=== PATIENT | female | born 1960 | race Caucasian/White ===

== ENCOUNTER 2019-08-22 20:29 | Inpatient (IN) | payer BC, OTHER ==
--- NOTE | 2019-08-22 21:07 | HP ---
Admitting History and Physical - Admission Chief Complaint: 07/31/19 acute abdominal pain, diarrhea, nausea and vomiting lasting one week. 08/06/19 paresthesias of tips of all fingers without motor or sensory drift. 08/08/19 right arm sensory drift, negative right Achilles, 2 + Achilles on left. 08/12/19 LP at [facility] with protein 29. 08/14/19 lost both Achilles, abnormal prioprioception, balance, and extreme fatigue. 08/20/19 paresthesias of both feet. 08/22/19 fell. 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 Labs 08/08/19 positive for Campylobacter, crp 22, platelets 75k, sed rate 33. 08/20/19 vit d 50, platelets 145k, HbA1c 8, sed rate 9. History Source: Patient Limitations to Obtaining History: No Limitations - Past Medical History MFTS: Yes: Other (abnormal prioprioception, feels like in a fog.) Cardiovascular: No: AFIB, Aneurysm, Aortic Insufficiency, Aortic Stenosis, CAD, CHF, Deep Vein Thrombosis, HTN, Hyperlipdemia, MD, Mitral Insufficiency, Mitral Stenosis, Murmur, Pulmonary Hypertension, Other Pulmonary: No: Asthma, Bronchitis, Cancer, COPD, O2 Dependent, Pneumonia, Previously Intubated, Pulmonary Embolus, Pulmonary Fibrosis, Sleep Apnea, Other Gastrointestinal: Yes: Other (Lap band) Hepatobiliary: No: Cirrhosis, Cholelithiasis, Cholecystitis, Choledocholithiasis , Hepatitis A, Hepatitis B, Hepatitis C, Other Renal/: No: Renal Failure, Renal Inusuff, BPH, Cancer, Hematuria, Hemodialysis , Neurogenic Bladder, Renal Calculi, UTI, Other Reproductive: Yes: Other (s/p total hysterectomy with bilateral oophorectomy) Heme/Onc: No: Anemia, B12 Deficiency, Bleeding Disorder, Cancer, Current Chemotherapy, Current Radiation Therapy, Hemochromatosis, Hypercoaguable State, Myeloproliferative Synd, Sickle Cell Disease, Sickle Cell Trait, Thrombocytopenia, Other Infectious Disease: Yes: Other (Campylobacter) Psych: No: Addictions, Anxiety, Bipolar, Depression, Panic, Psychosis, Schizophrenia, Other Musculoskeletal: Yes: Other (generalized muscle weakness) Rheumatology: No: Fibromyalgia, Gout, Lupus, Rheumatoid Arthritis, Sarcoidosis, Vasculitis, Other ENT: No: Allergic Rhinitis, Sinusitis, Other Endocrine: Yes: Diabetes Mellitus Dermatology: No: Basal Cell, Cellulitis, Eczema, Melanoma, Psoriasis, Squamous Cell, Other - Past Surgical History Past Surgical History: Yes: Hysterectomy, Laminectomy, Oopherectomy - Smoking History Smoking history: Never smoked - Alcohol/Substance Use Hx Alcohol Use: Yes (occasional) History of Substance Use: reports: None - Social History Usual Living Arrangement: Yes: With Significant Other History of Recent Travel: No Review of Systems - Review of Systems Constitutional: reports: Weakness Eyes: reports: No Symptoms HENT: reports: No Symptoms Neck: reports: No Symptoms Cardiovascular: reports: No Symptoms Respiratory: reports: No Symptoms Gastrointestinal: reports: Abdominal Pain, Diarrhea, Nausea, Vomiting Genitourinary: reports: No Symptoms Breasts: reports: No Symptoms Reported Musculoskeletal: reports: Muscle Weakness Integumentary: reports: No Symptoms Neurological: reports: Dizziness, Parasthesia, Unsteady Gait, Weakness Endocrine: reports: No Symptoms Hematology/Lymphatic: reports: No Symptoms Psychiatric: reports: No Symptoms Physical Examination Constitutional: Yes: Well Nourished, No Distress, Calm Eyes: Yes: Conjunctiva Clear, EOM Intact HENT: Yes: Atraumatic, Normocephalic Neck: Yes: Supple, Trachea Midline Cardiovascular: Yes: Regular Rate and Rhythm Respiratory: Yes: Regular, CTA Bilaterally Gastrointestinal: Yes: Normal Bowel Sounds, Soft ...Rectal Exam: Yes: Deferred Renal/: Yes: WNL Breast(s): Yes: WNL Musculoskeletal: Yes: Muscle Weakness Extremities: Yes: WNL Edema: No Peripheral Pulses WNL: Yes Peripheral Pulses: Left Radial: 2+, Right Radial: 2+, Left Doralis Pedis: 2+, Right Dorsalis Pedis: 2+, Left Femoral: 2+, Right Femoral: 2+ Integumentary: Yes: WNL Neurological: Yes: Alert, Oriented, Loss of Sensation, Paresthesia, Tingling, Unsteady Gait, Weakness ...Motor Strength: LUE (generalized muscle weakness) Psychiatric: Yes: Alert, Oriented Problem List - Problems (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 - GUILLAIN-BARRE SYNDROME (2) Endometrial ca Code(s): C54.1 - MALIGNANT NEOPLASM OF ENDOMETRIUM (3) Post laminectomy syndrome Code(s): M96.1 - POSTLAMINECTOMY SYNDROME, NOT ELSEWHERE CLASSIFIED (4) Paresthesia Code(s): R20.2 - PARESTHESIA OF SKIN (5) Impaired proprioception Code(s): R29.818 - OTHER SYMPTOMS AND SIGNS INVOLVING THE NERVOUS SYSTEM (6) Impaired functional mobility, balance, gait, and endurance Code(s): Z74.09 - OTHER REDUCED MOBILITY (7) Fatigue Code(s): R53.83 - OTHER FATIGUE (8) Fall from one level to another Code(s): W17.89XA - OTHER FALL FROM ONE LEVEL TO ANOTHER, INITIAL ENCOUNTER Assessment/Plan Assessment/plan: acute Guillain-Copiague syndrome; IV to keep vein open, IGG infusion, consultation to Dr. Gary Whitman.
[2019-08-22 21:52] LABS: BASO % 0.6 % (0-2.0); EOS % 1.5 % (0-4.5); HEMATOCRIT 41.9 % (32.4-45.2); HEMOGLOBIN 13.6 GM/dL (10.7-15.3); LYMPH % 27.1 % (8-40); MCH 27.5 pg (25.7-33.7); MCHC 32.5 g/dl (32.0-36.0); MEAN CELL VOLUME 84.5 fl (80-96); MEAN PLT VOLUME 7.8 fl (7.5-11.1); MONO % 6.3 % (3.8-10.2); NEUT % 64.5 % (42.8-82.8); PLATELET COUNT 169 K/MM3 (134-434); RBC 4.95 M/mm3 (3.60-5.2); RDW 14.2 % (11.6-15.6); WHITE BLOOD COUNT 7.7 K/mm3 (4.0-10.0)
[2019-08-22 22:04] LABS: INR 0.94 (0.83-1.09); PROTHROMBIN TIME (PATIENT) 11.1 SEC (9.7-13.0)
[2019-08-22 22:15] LABS: ALBUMIN 3.7 g/dl (3.4-5.0); BILIRUBIN,TOTAL 0.3 mg/dL (0.2-1); BLOOD UREA NITROGEN 22.9 mg/dL (7-18); CALCIUM 9.9 mg/dL (8.5-10.1); CREATININE 0.8 mg/dL (0.55-1.3); POTASSIUM 3.8 mmol/L (3.5-5.1); TOT PROT 6.7 g/dl (6.4-8.2)
--- NOTE | 2019-08-22 22:38 | CON.NEURO ---
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 with katerine Herman diarhea, the developed numbness of her hands comning week;progressed to numbness of her feet of recent; loss of dexterity in the last 72 hours. noted to have reduced reflexes over last week. LP done at [facility] one week ago CSF protein WNL. Also complains of dizziness/imbalance /SOB with exertion. Labs 08/08/19 positive for Campylobacter, crp 22, platelets 75k, sed rate 33. vit d 50, platelets 145k, HbA1c 8, sed rate 9 07/31/19 acute abdominal pain, diarrhea, nausea and vomiting lasting one week. 08/06/19 paresthesias of tips of all fingers without motor or sensory drift. right arm sensory drift, negative right Achilles, 2+ Achilles on left. 08/12/19 LP at [facility] with protein 29. Admitted for suspicion of AIDP/IVIG. 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: Other (abnormal prioprioception, feels like in a fog.) Cardio/Vascular: No: AFIB, Aneurysm, Aortic Insufficiency, Aortic Stenosis, CAD , CHF, Deep Vein Thrombosis, HTN, Hyperlipdemia, CT, Mitral Insufficiency, Mitral Stenosis, Murmur, Pulmonary Hypertension, Other Pulmonary: No: Asthma, Bronchitis, Cancer, COPD, O2 Dependent, Pneumonia, Previously Intubated, Pulmonary Embolus, Pulmonary Fibrosis, Sleep Apnea, Other Gastrointestinal: Yes: Other (Lap band) Hepatobiliary: No: Cirrhosis, Cholelithiasis, Cholecystitis, Choledocholithiasis , Hepatitis A, Hepatitis B, Hepatitis C, Other Renal/: No: Renal Failure, Renal Inusuff, BPH, Cancer, Hematuria, Hemodialysis , Neurogenic Bladder, Renal Calculi, UTI, Other ...LMP Comment: 2011 ...: No Infectious Disease: Yes: Other (Campylobacter) Psych: No: Addictions, Anxiety, Bipolar, Depression, Panic, Psychosis, Schizophrenia, Other Musculoskeletal: Yes: Other (generalized muscle weakness) Rheumatology: No: Fibromyalgia, Gout, Lupus, Rheumatoid Arthritis, Sarcoidosis, Vasculitis, Other ENT: No: Allergic Rhinitis, Sinusitis, Other Endocrine: Yes: Diabetes Mellitus Dermatology: No: Basal Cell, Cellulitis, Eczema, Melanoma, Psoriasis, Squamous Cell, Other - Past Surgical History Past Surgical History: Yes: Hysterectomy, Laminectomy, Oopherectomy - Alcohol/Substance Use Hx Alcohol Use: Yes (occasional) History of Substance Use: reports: None - Smoking History Smoking history: Never smoked - Social History History of Recent Travel: No Physical Exam-Neuro Vital Signs: Vital Signs Temperature 97.9 F 08/22/19 20:29 Pulse Rate 82 08/22/19 20:29 Respiratory Rate 18 08/22/19 22:10 Blood Pressure 134/76 08/22/19 20:29 O2 Sat by Pulse Oximetry (%) 96 08/22/19 22:10 Labs: CBC, BMP 08/22/19 21:35 08/22/19 21:35 INR, PTT INR 0.94 (0.83-1.09) 08/22/19 21:35 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 day with katerine Herman diarhea, the developed numbness of her hands comning week;progressed to numbness of her feet of recent; loss of dexterity in the last 72 hours. noted to have reduced reflexes over last week. LP done at [facility] one week ago CSF protein WNL. Also complains of dizziness/imbalance /SOB with exertion. Labs 08/08/19 positive for Campylobacter, crp 22, platelets 75k, sed rate 33. vit d 50, platelets 145k, HbA1c 8, sed rate 9 07/31/19 acute abdominal pain, diarrhea, nausea and vomiting lasting one week. 08/06/19 paresthesias of tips of all fingers without motor or sensory drift. right arm sensory drift, negative right Achilles, 2+ Achilles on left. 08/12/19 LP at [facility] with protein 29. AP : Suspicion for AIDP clinically/ acute progressive sensorimotor neuropathy plan for 5 days IVIG 2gm /kg total dose over 5 days. IGA level WNL. autonomic monitoring /neuro check and vital q6/ EKG-spoke to ICU/will move to unit. DVT prophalaxis. FU LYME CHest XRAY. DR LOWE
[2019-08-22] MEDS ORDERED: IMMUNE GLOBULIN (IgG) 20 GM VIAL (PRIVIGEN) IVPB SCH (23:00)
--- NOTE | 2019-08-22 23:13 | CONSULT ---
Consultation: REQUESTING PROVIDER: Dr. Whitman CONSULT REQUEST: We have been asked to medically evaluate this patient for Guillain-[place] on IVIG. HISTORY OF PRESENT ILLNESS: 59F presents in the ED for complaints of lower extremity weakness and GI symptoms for 2 weeks. On 07/31/19, pt's symptoms started with nausea, vomiting, diarrhea with decreased PO intake. She also noticed having left hand paresthesias/numbness which later progressed to her b/l feet. She completed 1 week of Ciprofloxacin with almost complete resolution of her GI symptoms now currently able to tolerate PO. Additionally, pt states over the past 3 days, she started experiencing problems walking due to imbalance. Denies cough, fever , chest pain. She was seen by Dr. Kovacs as an outpatient for evaluation of her symptoms and found to have reduced Achillies reflexes bilaterally. Labs done on 08/08/19 were positive for Campylobacter. Of note, she recently had an LP done at [facility] on 08/12/19 which showed normal protein. Pt was seen by neuro upon admission with suspicion for Guillain-[place] syndrome with plan to treat with IVIG. Neuro: Dr. Kovacs (seen by Dr. Whitman who is resolution analyst) REVIEW OF SYSTEMS: CONSTITUTIONAL: weight loss Absent: fever, chills, diaphoresis, generalized weakness, malaise, loss of appetite, weight change HEENT: Absent: rhinorrhea, nasal congestion, throat pain, throat swelling, difficulty swallowing, mouth swelling, ear pain, eye pain, visual changes CARDIOVASCULAR: Absent: chest pain, syncope, palpitations, irregular heart rate, lightheadedness , peripheral edema RESPIRATORY: Absent: cough, shortness of breath, dyspnea with exertion, orthopnea, wheezing, stridor, hemoptysis GASTROINTESTINAL: Absent: abdominal pain, abdominal distension, nausea, vomiting, diarrhea, constipation, melena, hematochezia GENITOURINARY: Absent: dysuria, frequency, urgency, hesitancy, hematuria, flank pain, genital pain MUSCULOSKELETAL: Absent: myalgia, arthralgia, joint swelling, back pain, neck pain SKIN: Absent: rash, itching, pallor HEMATOLOGIC/IMMUNOLOGIC: Absent: easy bleeding, easy bruising, lymphadenopathy, frequent infections ENDOCRINE: Absent: unexplained weight gain, unexplained weight loss, heat intolerance, cold intolerance NEUROLOGIC: b/l upper and lower paresthesias, unsteady gait, b/l lower extremity weakness Absent: headache, focal weakness or paresthesias, dizziness, unsteady gait, seizure, mental status changes, bladder or bowel incontinence PSYCHIATRIC: Absent: anxiety, depression, suicidal or homicidal ideation, hallucinations. PHYSICAL EXAMINATION Vital Signs - 24 hr 08/22/19 08/22/19 20:29 22:10 Temperature 97.9 F Pulse Rate 82 Respiratory 18 18 Rate Blood Pressure 134/76 O2 Sat by Pulse 96 96 Oximetry (%) GENERAL: AAOx3. NAD. Pleasant-well appearing female. HEENT: AT/NC. EOMI. MMM. NECK: Normal range of motion, supple without lymphadenopathy, JVD, or masses. LUNGS: CTA B/L. No wheezes, rhonchi, rales noted. HEART: RRR. Normal S1, S2. No murmurs noted. ABDOMEN: Soft, NT/ND. Normoactive bowel sounds in all 4Qs. MUSCULOSKELETAL: Normal range of motion at all joints. No bony deformities or tenderness. No CVA tenderness. EXTREMITIES: Chronic b/l erythema LE. 2+ dorsalis pedis pulses. NEUROLOGICAL: Cranial nerves II-XII intact. Normal speech. Normal gait. 2+ dorsalis pedis pulses b/l. 2+ radial pulses b/l. SKIN: Warm, dry, normal turgor, no rashes or lesions noted. Laboratory Results - last 24 hr 08/22/19 08/22/19 08/22/19 21:35 21:35 21:35 WBC 7.7 RBC 4.95 Hgb 13.6 Hct 41.9 MCV 84.5 MCH 27.5 MCHC 32.5 RDW 14.2 Plt Count 169 MPV 7.8 Absolute Neuts (auto) 5.0 Neutrophils % 64.5 Lymphocytes % 27.1 Monocytes % 6.3 Eosinophils % 1.5 Basophils % 0.6 Nucleated RBC % 0 PT with INR 11.10 INR 0.94 Sodium 139 Potassium 3.8 Chloride 105 Carbon Dioxide 26 Anion Gap 8 BUN 22.9 H Creatinine 0.8 Est GFR (CKD-EPI)AfAm 92.22 Est GFR (CKD-EPI)NonAf 79.57 Random Glucose 116 H Calcium 9.9 Total Bilirubin 0.3 AST 20 ALT 43 Alkaline Phosphatase 56 Total Protein 6.7 Albumin 3.7 Active Medications Generic Name Dose Route Start Last Admin Trade Name Freq PRN Reason Stop Dose Admin Immune Globulin 40 gm 08/22/19 23:00 Privigen 10% Vial IVPB 08/26/19 22:01 DAILY@2200 [facility] ASSESSMENT/PLAN: 59F presents in the ED for complaints of lower extremity weakness and GI symptoms for 2 weeks found to have 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 Neuro Acute Guillain-[place] Syndrome -AAOx3, stable gait -Neuro consulted (Dr. Whitman) -IVIG ordered Cardiovascular -hemodynamically stable -cont ICU tele monitoring Pulm -No acute issues -Satting well on room air GI -Currently asymptomatic, tolerating PO -Regular diet ID -Completed 1 week of Ciprofloxacin as an outpatient Prophylaxis DVT: SCDs FEN -no IVf -recheck lytes in AM -Regular diet Dispo: We will continue to follow the patient. Thank you for this consultative opportunity. Visit type - Emergency Visit Emergency Visit: Yes ED Registration Date: 08/22/19 Care time: The patient presented to the Emergency Department on the above date and was hospitalized for further evaluation of their emergent condition. - New Patient This patient is new to me today: Yes Date on this admission: 08/23/19 - Critical Care Critical Care patient: Yes Total Critical Care Time (in minutes): 45 Critical Care Statement: The care of this patient involved high complexity decision making to prevent further life threatening deterioration of the patient 's condition and/or to evaluate & treat vital organ system(s) failure or risk of failure. ATTENDING PHYSICIAN STATEMENT I saw and evaluated the patient. I reviewed the resident's note and discussed the case with the resident. I agree with the resident's findings and plan as documented. SUBJECTIVE: OBJECTIVE: ASSESSMENT AND PLAN:
[2019-08-23 08:17] LABS: BASO % 0.5 % (0-2.0); EOS % 1.2 % (0-4.5); HEMATOCRIT 39.1 % (32.4-45.2); HEMOGLOBIN 12.9 GM/dL (10.7-15.3); MCH 27.7 pg (25.7-33.7); MEAN CELL VOLUME 83.8 fl (80-96); MEAN PLT VOLUME 7.6 fl (7.5-11.1); MONO % 6.7 % (3.8-10.2); NEUT % 71.6 % (42.8-82.8); PLATELET COUNT 140 K/MM3 (134-434); RBC 4.66 M/mm3 (3.60-5.2); RDW 14.4 % (11.6-15.6); WHITE BLOOD COUNT 4.1 K/mm3 (4.0-10.0)
[2019-08-23 08:39] LABS: ALBUMIN 3.3 g/dl (3.4-5.0); BILIRUBIN,TOTAL 0.5 mg/dL (0.2-1); BLOOD UREA NITROGEN 17.5 mg/dL (7-18); CALCIUM 9.2 mg/dL (8.5-10.1); CREATININE 0.7 mg/dL (0.55-1.3); TOT PROT 7.1 g/dl (6.4-8.2)
--- NOTE | 2019-08-23 09:16 | PN ---
Progress Note, Physician Chief Complaint: Acute upper and lower paresthesias, abnormal proprioception, unsteady gait, and generalized muscle weakness. Denies to shortness of breath. 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 - Current Medication List Current Medications: Active Medications Chlorhexidine Gluconate (Hibiclens For Decolonization -) 1 applic TP HS [facility] Immune Globulin (Privigen 10% Vial) 40 gm IVPB DAILY@2200 [facility] Stop: 08/25/19 22:01 Mupirocin (Bactroban Ointment (For Decolonization) -) 1 applic NS BID [facility] Stop: 08/28/19 09:59 - Objective Vital Signs: Vital Signs Temperature 97.9 F 08/23/19 00:29 Pulse Rate 78 08/23/19 08:45 Respiratory Rate 18 08/23/19 08:45 Blood Pressure 123/84 08/23/19 08:45 O2 Sat by Pulse Oximetry (%) 99 08/23/19 08:35 Constitutional: Yes: Well Nourished, No Distress, Calm Eyes: Yes: Conjunctiva Clear, EOM Intact HENT: Yes: Atraumatic, Normocephalic Neck: Yes: Supple, Trachea Midline Cardiovascular: Yes: Regular Rate and Rhythm Respiratory: Yes: Regular, CTA Bilaterally Gastrointestinal: Yes: Normal Bowel Sounds, Soft ...Rectal Exam: Yes: Deferred Genitourinary: Yes: WNL Breast(s): Yes: WNL Musculoskeletal: Yes: Muscle Weakness Extremities: Yes: Other (generalized muscle weakness) Edema: No Peripheral Pulses WNL: Yes Peripheral Pulses: Left Radial: 2+, Right Radial: 2+, Left Doralis Pedis: 2+, Right Dorsalis Pedis: 2+, Left Femoral: 2+, Right Femoral: 2+ Integumentary: Yes: WNL Neurological: Yes: Alert, Oriented, Paresthesia, Unsteady Gait, Weakness ...Motor Strength: LUE (generalized muscle weakness) Psychiatric: Yes: WNL Labs: CBC, BMP 08/23/19 07:37 08/23/19 07:37 INR, PTT INR 0.94 (0.83-1.09) 08/22/19 21:35 - ....Imaging Other: Report Reviewed (Lab data reviewed) Problem List - Problems (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 - GUILLAIN-BARRE SYNDROME (2) Endometrial ca Code(s): C54.1 - MALIGNANT NEOPLASM OF ENDOMETRIUM (3) Post laminectomy syndrome Code(s): M96.1 - POSTLAMINECTOMY SYNDROME, NOT ELSEWHERE CLASSIFIED (4) Paresthesia Code(s): R20.2 - PARESTHESIA OF SKIN (5) Impaired proprioception Code(s): R29.818 - OTHER SYMPTOMS AND SIGNS INVOLVING THE NERVOUS SYSTEM (6) Impaired functional mobility, balance, gait, and endurance Code(s): Z74.09 - OTHER REDUCED MOBILITY (7) Fatigue Code(s): R53.83 - OTHER FATIGUE (8) Fall from one level to another Code(s): W17.89XA - OTHER FALL FROM ONE LEVEL TO ANOTHER, INITIAL ENCOUNTER (9) Physical deconditioning Code(s): R53.81 - OTHER MALAISE (10) Muscular deconditioning Code(s): R29.898 - OTH SYMPTOMS AND SIGNS INVOLVING THE MUSCULOSKELETAL SYSTEM (11) Type 2 diabetes mellitus Code(s): E11.9 - TYPE 2 DIABETES MELLITUS WITHOUT COMPLICATIONS Assessment/Plan Assessment/plan: 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
[2019-08-23] MEDS ORDERED: IMMUNE GLOBULIN (IgG) 10 GM VIAL IVPB SCH (10:00)
[2019-08-23] MEDS ORDERED: PT OWN MED DRAWER 7, Y5N ONE (10:03)
--- NOTE | 2019-08-23 10:55 | CONSULT ---
Consult - text type - Consultation Consultation Note: [facility] Pt seen and examined in ICU CC: paresthesia, direct admit for IVIG infusion HPI: obtained from medical record and pt herself. 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 Pt relates day with acute GI illnes, mostly NB diarrhea, and then subsequently ~72hrs later the developed numbness of her hands ;progressed to numbness of her feet and loss of dexterity also noted to have reduced reflexes over last week. She had LP done at [facility], [place] ~ one week ago with CSF protein WNL. Also complains of dizziness/imbalance /SOB with exertion. There was still concern for GBS and she was offered IVIG at that time. here symptoms had appeared to be improving so she declined at that time but they soon returned prompting visit with neurology here. IVIG again recommended and pt was directly admitted for the IVIG. Given concern for acute autonomic dysfunction and risk for cardiac abnomalities she was admitted to the ICU for the inital infusion. She tolerated dose last night and is well appearing this am. Labs 08/08/19 positive for Campylobacter, crp 22, platelets 75k, sed rate 33. vit d 50, platelets 145k, HbA1c 8, sed rate 9 07/31/19 acute abdominal pain, diarrhea, nausea and vomiting lasting one week. 08/06/19 paresthesias of tips of all fingers without motor or sensory drift. right arm sensory drift, negative right Achilles, 2+ Achilles on left. 08/12/[address] [facility] with protein 29. Past Medical History [employer] Other (abnormal prioprioception, feels like in a fog.) Cardio/Vascular Pulmonary Gastrointestinal Other (Lap band) Hepatobiliary Renal/ Reproductive Other (s/p total hysterectomy with bilateral oophorectomy) Heme/Onc Infectious Disease Other (Campylobacter) Psych Rheumatology ENT Endocrine Diabetes Mellitus Dermatology Past Surgical History Past Surgical History Hysterectomy,Laminectomy,Oopherectomy Smoking History Smoking history Never smoked Alcohol/Substance Use Hx Alcohol Use Yes: occasional History of Substance Use None Social History History of Recent Travel No Active Medications Chlorhexidine Gluconate (Hibiclens For Decolonization -) 1 applic TP HS [facility] Immune Globulin (Privigen 10% Vial) 40 gm IVPB DAILY@2200 [facility] Stop: 08/25/19 22:01 Mupirocin (Bactroban Ointment (For Decolonization) -) 1 applic NS BID [facility] Stop: 08/28/19 09:59 CBCD WBC 4.1 K/mm3 (4.0-10.0) 08/23/19 07:37 RBC 4.66 M/mm3 (3.60-5.2) 08/23/19 07:37 Hgb 12.9 GM/dL (10.7-15.3) 08/23/19 07:37 Hct 39.1 % (32.4-45.2) 08/23/19 07:37 MCV 83.8 fl (80-96) 08/23/19 07:37 MCHC 33.0 g/dl (32.0-36.0) 08/23/19 07:37 RDW 14.4 % (11.6-15.6) 08/23/19 07:37 Plt Count 140 K/MM3 (134-434) 08/23/19 07:37 MPV 7.6 fl (7.5-11.1) 08/23/19 07:37 CMP Sodium 138 mmol/L (136-145) 08/23/19 07:37 Potassium 4.0 mmol/L (3.5-5.1) 08/23/19 07:37 Chloride 106 mmol/L (98-107) 08/23/19 07:37 Carbon Dioxide 25 mmol/L (21-32) 08/23/19 07:37 Anion Gap 7 MMOL/L (8-16) L 08/23/19 07:37 BUN 17.5 mg/dL (7-18) 08/23/19 07:37 Creatinine 0.7 mg/dL (0.55-1.3) 08/23/19 07:37 Random Glucose 150 mg/dL (74-106) H 08/23/19 07:37 Calcium 9.2 mg/dL (8.5-10.1) 08/23/19 07:37 Total Bilirubin 0.5 mg/dL (0.2-1) 08/23/19 07:37 AST 19 U/L (15-37) 08/23/19 07:37 ALT 38 U/L (13-61) 08/23/19 07:37 Alkaline Phosphatase 53 U/L (45-117) 08/23/19 07:37 Total Protein 7.1 g/dl (6.4-8.2) 08/23/19 07:37 Albumin 3.3 g/dl (3.4-5.0) L 08/23/19 07:37 Constitutional: Yes: Well Nourished, No Distress, Calm Eyes: Yes: Conjunctiva Clear, EOM Intact HENT: Yes: Atraumatic, Normocephalic Neck: Yes: Supple, Trachea Midline Cardiovascular: Yes: Regular Rate and Rhythm Respiratory: Yes: Regular, CTA Bilaterally Gastrointestinal: Yes: Normal Bowel Sounds, Soft ...Rectal Exam: Yes: Deferred Genitourinary: Yes: WNL Breast(s): Yes: WNL Musculoskeletal: Yes: Muscle Weakness Extremities: Yes: Other (generalized muscle weakness) Edema: No Peripheral Pulses WNL: Yes Peripheral Pulses: Left Radial: 2+, Right Radial: 2+, Left Doralis Pedis: 2+, Right Dorsalis Pedis: 2+, Left Femoral: 2+, Right Femoral: 2+ Integumentary: Yes: WNL Neurological: Yes: Alert, Oriented, Paresthesia, Unsteady Gait, Weakness ...Motor Strength: LUE (generalized muscle weakness) Psychiatric: Yes: WNL ASSESSMENT/PLAN: 59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 Whitman) -IVIG ordered - neuro checks CV -hemodynamically stable -cont ICU tele monitoring GI -Currently asymptomatic, tolerating PO -Regular diet ID -Completed 1 week of Ciprofloxacin as an outpatient -no current sick prodrome Prophylaxis DVT: SCDs FEN -Regular diet [id number]
[2019-08-23] MEDS: MUPIROCIN 2% TOPICAL OINTMENT FOR DECOLONIZATION NS SCH ×2 (12:05→21:47)
--- NOTE | 2019-08-23 14:27 | PN ---
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 with katerine Herman diarhea, the developed numbness of her hands comning week;progressed to numbness of her feet of recent; loss of dexterity in the last 72 hours. noted to have reduced reflexes over last week. LP done at [facility] one week ago CSF protein WNL. Also complains of dizziness/imbalance /SOB with exertion. Labs 08/08/19 positive for Campylobacter, crp 22, platelets 75k, sed rate 33. vit d 50, platelets 145k, HbA1c 8, sed rate 9 07/31/19 acute abdominal pain, diarrhea, nausea and vomiting lasting one week. 08/06/19 paresthesias of tips of all fingers without motor or sensory drift. right arm sensory drift, negative right Achilles, 2+ Achilles on left. 08/12/19 LP at [facility] with protein 29. Admitted for suspicion of AIDP/IVIG. 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, feels like in a fog.) Cardio/Vascular: No: AFIB, Aneurysm, Aortic Insufficiency, Aortic Stenosis, CAD , CHF, Deep Vein Thrombosis, HTN, Hyperlipdemia, [place], Mitral Insufficiency, Mitral Stenosis, Murmur, Pulmonary Hypertension, Other Pulmonary: No: Asthma, Bronchitis, Cancer, COPD, O2 Dependent, Pneumonia, Previously Intubated, Pulmonary Embolus, Pulmonary Fibrosis, Sleep Apnea, Other Gastrointestinal: Yes: Other (Lap band) Hepatobiliary: No: Cirrhosis, Cholelithiasis, Cholecystitis, Choledocholithiasis , Hepatitis A, Hepatitis B, Hepatitis C, Other Renal/: No: Renal Failure, Renal Inusuff, BPH, Cancer, Hematuria, Hemodialysis , Neurogenic Bladder, Renal Calculi, UTI, Other ...LMP Comment: 2011 ...: No Infectious Disease: Yes: Other (Campylobacter) Psych: No: Addictions, Anxiety, Bipolar, Depression, Panic, Psychosis, Schizophrenia, Other Musculoskeletal: Yes: Other (generalized muscle weakness) Rheumatology: No: Fibromyalgia, Gout, Lupus, Rheumatoid Arthritis, Sarcoidosis, Vasculitis, Other ENT: No: Allergic Rhinitis, Sinusitis, Other Endocrine: Yes: Diabetes Mellitus Dermatology: No: Basal Cell, Cellulitis, Eczema, Melanoma, Psoriasis, Squamous Cell, Other - Past Surgical History Past Surgical History: Yes: Hysterectomy, Laminectomy, Oopherectomy - Alcohol/Substance Use Hx Alcohol Use: Yes (occasional) History of Substance Use: reports: None - Smoking History Smoking history: Never smoked - Social History History of Recent Travel: No Physical Exam-Neuro Vital Signs: Vital Signs Temperature 97.9 F 08/23/19 00:29 Pulse Rate 78 08/23/19 08:45 Respiratory Rate 18 08/23/19 08:45 Blood Pressure 123/84 08/23/19 08:45 O2 Sat by Pulse Oximetry (%) 99 08/23/19 08:35 Labs: CBCD WBC 4.1 K/mm3 (4.0-10.0) 08/23/19 07:37 RBC 4.66 M/mm3 (3.60-5.2) 08/23/19 07:37 Hgb 12.9 GM/dL (10.7-15.3) 08/23/19 07:37 Hct 39.1 % (32.4-45.2) 08/23/19 07:37 MCV 83.8 fl (80-96) 08/23/19 07:37 MCHC 33.0 g/dl (32.0-36.0) 08/23/19 07:37 RDW 14.4 % (11.6-15.6) 08/23/19 07:37 Plt Count 140 K/MM3 (134-434) 08/23/19 07:37 MPV 7.6 fl (7.5-11.1) 08/23/19 07:37 CMP Sodium 138 mmol/L (136-145) 08/23/19 07:37 Potassium 4.0 mmol/L (3.5-5.1) 08/23/19 07:37 Chloride 106 mmol/L (98-107) 08/23/19 07:37 Carbon Dioxide 25 mmol/L (21-32) 08/23/19 07:37 Anion Gap 7 MMOL/L (8-16) L 08/23/19 07:37 BUN 17.5 mg/dL (7-18) 08/23/19 07:37 Creatinine 0.7 mg/dL (0.55-1.3) 08/23/19 07:37 Calcium 9.2 mg/dL (8.5-10.1) 08/23/19 07:37 Total Bilirubin 0.5 mg/dL (0.2-1) 08/23/19 07:37 AST 19 U/L (15-37) 08/23/19 07:37 ALT 38 U/L (13-61) 08/23/19 07:37 Alkaline Phosphatase 53 U/L (45-117) 08/23/19 07:37 Total Protein 7.1 g/dl (6.4-8.2) 08/23/19 07:37 Albumin 3.3 g/dl (3.4-5.0) L 08/23/19 07:37 Assessment/Plan 59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 Jose day with katerine Herman diarhea, the developed numbness of her hands comning week;progressed to numbness of her feet of recent; loss of dexterity in the last 72 hours. noted to have reduced reflexes over last week. LP done at [facility] one week ago CSF protein WNL. Also complains of dizziness/imbalance /SOB with exertion. Labs 08/08/19 positive for Campylobacter, crp 22, platelets 75k, sed rate 33. 1 /04/01 vit d 50, platelets 145k, HbA1c 8, sed rate 9 07/31/19 acute abdominal pain, diarrhea, nausea and vomiting lasting one week. 08/06/19 paresthesias of tips of all fingers without motor or sensory drift. right arm sensory drift, negative right Achilles, 2+ Achilles on left. 08/12/19 LP at [facility] with protein 29. AP : Suspicion for AIDP clinically/ acute progressive sensorimotor neuropathy IVIG day 1/5 IGA level WNL. autonomic monitoring /neuro check and vital q6/ DVT prophalaxis. FU LYME PT consult DR LOWE
[2019-08-23] MEDS: IMMUNE GLOBULIN (IgG) 20 GM VIAL (PRIVIGEN) IVPB SCH (18:23)
[2019-08-23] MEDS: CHLORHEXIDINE GLUCONATE 4% CLEANSER FOR DECOLONIZATION TP SCH (21:47)
[2019-08-24] MEDS: ACETAMINOPHEN 325 MG TABLET (FP) PO PRN ×3 (02:14→20:39)
[2019-08-24 06:34] LABS: HEMATOCRIT 39.7 % (32.4-45.2); HEMOGLOBIN 13.1 GM/dL (10.7-15.3); MCH 27.7 pg (25.7-33.7); MEAN PLT VOLUME 7.8 fl (7.5-11.1); PLATELET COUNT 173 K/MM3 (134-434); RBC 4.73 M/mm3 (3.60-5.2); RDW 14.5 % (11.6-15.6); WHITE BLOOD COUNT 4.7 K/mm3 (4.0-10.0)
[2019-08-24 06:50] LABS: BLOOD UREA NITROGEN 14.5 mg/dL (7-18); CREATININE 0.6 mg/dL (0.55-1.3); POTASSIUM 4.3 mmol/L (3.5-5.1)
--- NOTE | 2019-08-24 09:33 | PN ---
Progress Note (short form) - Note Progress Note: PULM/CCM Progress Notes: Pt seen and examined in the ICU. States that numbness in BLE is slightly improved. C/o headache o/n. No neck stiffness. Relieved with Tylenol. OOB to chair and ambulating. Active Medications Acetaminophen (Tylenol -) 650 mg PO Q4H PRN PRN Reason: MILD PAIN Last Admin: 08/24/19 02:14 Dose: 650 mg Chlorhexidine Gluconate (Hibiclens For Decolonization -) 1 applic TP HS [facility] Last Admin: 08/23/19 21:47 Dose: 1 applic Immune Globulin (Privigen 10% Vial) 40 gm IVPB DAILY@1800 [facility] Stop: 08/26/19 18:01 Last Admin: 08/23/19 18:23 Dose: 40 gm Mupirocin (Bactroban Ointment (For Decolonization) -) 1 applic NS BID [facility] Stop: 08/28/19 09:59 Last Admin: 08/23/19 21:47 Dose: Not Given Vital Signs Period Temp Pulse Resp BP Sys/Griffin Pulse Ox Last 24 Hr 97.4 F-98.2 F 73-85 07-04 99-127/62-91 99 Intake & Output 08/21/19 08/22/19 08/23/19 08/24/19 23:59 23:59 23:59 23:59 Intake Total 800 400 Balance 800 400 Weight 107.048 kg 107 kg Neuro: A+O x3, MEAD, neck supple HEENT: PERRL; MMM Lungs: CTA CV: RRR Abd: Soft, ND, NT EXT: WWP CBC, BMP 08/24/19 05:10 08/24/19 05:10 ASSESSMENT/PLAN: 59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 Whitman) -IVIG d3/5 -Regular neuro checks CV -hemodynamically stable -cont ICU tele monitoring GI -Currently asymptomatic, tolerating PO -Regular diet ID -Completed 1 week of Ciprofloxacin as an outpatient -no current sick prodrome Prophylaxis DVT: SCDs FEN -Regular diet Irma Hinojosa, ARIEL
[2019-08-24] MEDS: MUPIROCIN 2% TOPICAL OINTMENT FOR DECOLONIZATION NS SCH ×2 (10:15→22:02)
--- NOTE | 2019-08-24 11:41 | PN ---
Progress Note, Physician Chief Complaint: Patient seen and examined at the bedside in ICU. Acute paresthesias of tips of fingers and feet, unsteady gait, generalized weakness, headache, and fatigue. Denies to shortness of breath. 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 admitted directly to [facility] with acute Guiilain-[place]amar syndrome (AIDP ) for treatment with immune globulin and close observation for - Current Medication List Current Medications: Active Medications Acetaminophen (Tylenol -) 650 mg PO Q4H PRN PRN Reason: MILD PAIN Last Admin: 08/24/19 02:14 Dose: 650 mg Chlorhexidine Gluconate (Hibiclens For Decolonization -) 1 applic TP HS [facility] Last Admin: 08/23/19 21:47 Dose: 1 applic Immune Globulin (Privigen 10% Vial) 40 gm IVPB DAILY@1800 [facility] Stop: 08/26/19 18:01 Last Admin: 08/23/19 18:23 Dose: 40 gm Mupirocin (Bactroban Ointment (For Decolonization) -) 1 applic NS BID [facility] Stop: 08/28/19 09:59 Last Admin: 08/24/19 10:15 Dose: Not Given - Objective Vital Signs: Vital Signs Temperature 97.8 F 08/24/19 02:00 Pulse Rate 84 08/24/19 10:16 Respiratory Rate 20 08/24/19 10:16 Blood Pressure 122/83 08/24/19 10:16 O2 Sat by Pulse Oximetry (%) 99 08/24/19 09:00 Constitutional: Yes: Well Nourished, No Distress, Calm, Mild Distress Eyes: Yes: Conjunctiva Clear, EOM Intact HENT: Yes: Atraumatic, Normocephalic Neck: Yes: Supple, Trachea Midline Cardiovascular: Yes: Regular Rate and Rhythm Respiratory: Yes: Regular, CTA Bilaterally Gastrointestinal: Yes: Normal Bowel Sounds, Soft ...Rectal Exam: Yes: Deferred Genitourinary: Yes: WNL Breast(s): Yes: WNL Musculoskeletal: Yes: Muscle Weakness Extremities: Yes: WNL Edema: Yes Edema: LLE: Trace, RLE: Trace Peripheral Pulses WNL: Yes Peripheral Pulses: Left Radial: 2+, Right Radial: 2+, Left Doralis Pedis: 2+, Right Dorsalis Pedis: 2+, Left Femoral: 2+, Right Femoral: 2+ Integumentary: Yes: WNL Neurological: Yes: Paresthesia, Unsteady Gait, Weakness ...Motor Strength: LUE (generalized muscle weakness) Psychiatric: Yes: WNL Labs: CBC, BMP 08/24/19 05:10 08/24/19 05:10 INR, PTT INR 0.94 (0.83-1.09) 08/22/19 21:35 - ....Imaging Other: Report Reviewed (Lab data reviewed) Problem List - Problems (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 - GUILLAIN-BARRE SYNDROME (2) Endometrial ca Code(s): C54.1 - MALIGNANT NEOPLASM OF ENDOMETRIUM (3) Post laminectomy syndrome Code(s): M96.1 - POSTLAMINECTOMY SYNDROME, NOT ELSEWHERE CLASSIFIED (4) Paresthesia Code(s): R20.2 - PARESTHESIA OF SKIN (5) Impaired proprioception Code(s): R29.818 - OTHER SYMPTOMS AND SIGNS INVOLVING THE NERVOUS SYSTEM (6) Impaired functional mobility, balance, gait, and endurance Code(s): Z74.09 - OTHER REDUCED MOBILITY (7) Fatigue Code(s): R53.83 - OTHER FATIGUE (8) Fall from one level to another Code(s): W17.89XA - OTHER FALL FROM ONE LEVEL TO ANOTHER, INITIAL ENCOUNTER (9) Physical deconditioning Code(s): R53.81 - OTHER MALAISE (10) Muscular deconditioning Code(s): R29.898 - OTH SYMPTOMS AND SIGNS INVOLVING THE MUSCULOSKELETAL SYSTEM (11) Type 2 diabetes mellitus Code(s): E11.9 - TYPE 2 DIABETES MELLITUS WITHOUT COMPLICATIONS (12) Headache Code(s): R51 - HEADACHE Assessment/Plan Assessment/plan: 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
[2019-08-24] MEDS ORDERED: ACETAMINOPHEN 325 MG TABLET (FP) PO PRN (11:44)
[2019-08-24 14:41] VITALS: BMI 43.0
[2019-08-24] MEDS ORDERED: diphenhydrAMINE HCL 25 MG CAPSULE (FP) PO PRN (16:44)
[2019-08-24] MEDS ORDERED: PT OWN MED DRAWER 7, Y5N ONE (17:17)
[2019-08-24] MEDS: IMMUNE GLOBULIN (IgG) 20 GM VIAL (PRIVIGEN) IVPB SCH (18:25)
[2019-08-24] MEDS: CHLORHEXIDINE GLUCONATE 4% CLEANSER FOR DECOLONIZATION TP SCH (22:02)
[2019-08-25] MEDS: ACETAMINOPHEN 325 MG TABLET (FP) PO PRN ×2 (07:29→21:44)
--- NOTE | 2019-08-25 10:35 | PN ---
Teaching Attending Note Name of Resident: Ирина Alexander ATTENDING PHYSICIAN STATEMENT I saw and evaluated the patient. I reviewed the resident's note and discussed the case with the resident. I agree with the resident's findings and plan as documented. SUBJECTIVE: Patient seen and examined in the ICU. HARRIS overnight that is improved today. No CP or SOB. No acute events overnight. Intake & Output 08/22/19 08/23/19 08/24/19 08/25/19 23:59 23:59 23:59 23:59 Intake Total 800 800 Balance 800 800 Weight 236 lb 235 lb 14.314 oz 235 lb Last Vital Signs Temp Pulse Resp BP Pulse Ox 97.6 F 72 20 109/64 99 08/24/19 21:00 08/25/19 08:06 08/25/19 08:06 08/25/19 08:06 08/24/19 19:22 Active Medications Acetaminophen (Tylenol -) 650 mg PO Q4H PRN PRN Reason: MILD PAIN Last Admin: 08/25/19 07:29 Dose: 650 mg Chlorhexidine Gluconate (Hibiclens For Decolonization -) 1 applic TP HS [facility] Last Admin: 08/24/19 22:02 Dose: 1 applic Diphenhydramine HCl (Benadryl -) 25 mg PO Q6H PRN PRN Reason: FOR ITCHING Last Admin: 08/24/19 17:23 Dose: 25 mg Immune Globulin (Privigen 10% Vial) 40 gm IVPB DAILY@1800 [facility] Stop: 08/26/19 18:01 Last Admin: 08/24/19 18:25 Dose: 40 gm Mupirocin (Bactroban Ointment (For Decolonization) -) 1 applic NS BID [facility] Stop: 08/28/19 09:59 Last Admin: 08/24/19 22:02 Dose: Not Given Neuro: A+O x3, MEAD, neck supple HEENT: PERRL; MMM Lungs: CTA CV: RRR Abd: Soft, ND, NT EXT: WWP ASSESSMENT/PLAN: GBS/ADIP IVIG Infusion day #4/5 O2 as needed OOB to chair VTE prophylaxis PO as tolerated Floor Dr Oh
[2019-08-25] MEDS: MUPIROCIN 2% TOPICAL OINTMENT FOR DECOLONIZATION NS SCH ×2 (10:37→21:43)
--- NOTE | 2019-08-25 12:16 | PN ---
Progress Note, Physician Chief Complaint: Patient seen and examined at the bedside, unsteady gait much improved, paresthesias of fingers and feet subsided, Achilles deep tendon reflexes absent. 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 07/31/19 abdominal pain, diarrhea, nausea and vomiting; 08/06/19 paresthesias of tips of fingers with negative motor or sensory drift; 08/08/19 right arm sensory drift, negative Achilles on right, 2+ Achilles on left; 08/14/19 lost both Achilles, proprioception, balance, fatigue; 08/20/19 paresthesias both feet; 08/22/19 fell. 08/08/19 + Campylobacter, crp 22, plt 75k, sed rate 33; 08/20/19 vitd 50, plt 145k , aic 8, sed rate 9. - Current Medication List Current Medications: Active Medications Acetaminophen (Tylenol -) 650 mg PO Q4H PRN PRN Reason: MILD PAIN Last Admin: 08/25/19 07:29 Dose: 650 mg Chlorhexidine Gluconate (Hibiclens For Decolonization -) 1 applic TP HS [facility] Last Admin: 08/24/19 22:02 Dose: 1 applic Diphenhydramine HCl (Benadryl -) 25 mg PO Q6H PRN PRN Reason: FOR ITCHING Last Admin: 08/24/19 17:23 Dose: 25 mg Immune Globulin (Privigen 10% Vial) 40 gm IVPB DAILY@1800 [facility] Stop: 08/26/19 18:01 Last Admin: 08/24/19 18:25 Dose: 40 gm Mupirocin (Bactroban Ointment (For Decolonization) -) 1 applic NS BID [facility] Stop: 08/28/19 09:59 Last Admin: 08/25/19 10:37 Dose: Not Given - Objective Vital Signs: Vital Signs Temperature 97.6 F 08/24/19 21:00 Pulse Rate 72 08/25/19 08:06 Respiratory Rate 20 08/25/19 08:06 Blood Pressure 109/64 08/25/19 08:06 O2 Sat by Pulse Oximetry (%) 99 08/24/19 19:22 Constitutional: Yes: Well Nourished, No Distress, Calm Eyes: Yes: Conjunctiva Clear, EOM Intact HENT: Yes: Atraumatic, Normocephalic Neck: Yes: Supple, Trachea Midline Cardiovascular: Yes: Regular Rate and Rhythm Respiratory: Yes: Regular, CTA Bilaterally Gastrointestinal: Yes: Normal Bowel Sounds, Soft ...Rectal Exam: Yes: Deferred Genitourinary: Yes: WNL Breast(s): Yes: WNL Musculoskeletal: Yes: Muscle Weakness Extremities: Yes: Other (generalized muscle weakness) Edema: No Peripheral Pulses WNL: Yes Peripheral Pulses: Left Radial: 2+, Right Radial: 2+, Left Doralis Pedis: 2+, Right Dorsalis Pedis: 2+, Left Femoral: 2+, Right Femoral: 2+ Integumentary: Yes: WNL Neurological: Yes: Unsteady Gait (much improved), Weakness ...Motor Strength: LUE (generalized muscle weakness) Psychiatric: Yes: WNL Labs: CBC, BMP 08/24/19 05:10 08/24/19 05:10 INR, PTT INR 0.94 (0.83-1.09) 08/22/19 21:35 Problem List - Problems (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 - GUILLAIN-BARRE SYNDROME (2) Endometrial ca Code(s): C54.1 - MALIGNANT NEOPLASM OF ENDOMETRIUM (3) Post laminectomy syndrome Code(s): M96.1 - POSTLAMINECTOMY SYNDROME, NOT ELSEWHERE CLASSIFIED (4) Paresthesia Code(s): R20.2 - PARESTHESIA OF SKIN (5) Impaired proprioception Code(s): R29.818 - OTHER SYMPTOMS AND SIGNS INVOLVING THE NERVOUS SYSTEM (6) Impaired functional mobility, balance, gait, and endurance Code(s): Z74.09 - OTHER REDUCED MOBILITY (7) Fatigue Code(s): R53.83 - OTHER FATIGUE (8) Fall from one level to another Code(s): W17.89XA - OTHER FALL FROM ONE LEVEL TO ANOTHER, INITIAL ENCOUNTER (9) Physical deconditioning Code(s): R53.81 - OTHER MALAISE (10) Muscular deconditioning Code(s): R29.898 - OTH SYMPTOMS AND SIGNS INVOLVING THE MUSCULOSKELETAL SYSTEM (11) Type 2 diabetes mellitus Code(s): E11.9 - TYPE 2 DIABETES MELLITUS WITHOUT COMPLICATIONS (12) Headache Code(s): R51 - HEADACHE Assessment/Plan Assessment/plan: 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
[2019-08-25] MEDS ORDERED: diphenhydrAMINE HCL 25 MG CAPSULE (FP) PO PRN (13:37)
--- NOTE | 2019-08-25 16:46 | PN ---
Physical Exam: SUBJECTIVE: Patient seen and examined OBJECTIVE: Vital Signs Period Temp Pulse Resp BP Sys/Griffin Pulse Ox Last 24 Hr 97.6 F 72-90 17-20 109-117/64-88 99-99 GENERAL: The patient is awake, alert, and fully oriented, in no acute distress. HEAD: Normal with no signs of trauma. EYES: PERRL, extraocular movements intact, sclera anicteric, conjunctiva clear. No ptosis. ENT: Ears normal, nares patent, oropharynx clear without exudates, moist mucous membranes. NECK: Trachea midline, full range of motion, supple. LUNGS: Breath sounds equal, clear to auscultation bilaterally, no wheezes, no crackles, no accessory muscle use. HEART: Regular rate and rhythm, S1, S2 without murmur, rub or gallop. ABDOMEN: Soft, nontender, nondistended, normoactive bowel sounds, no guarding, no rebound, no hepatosplenomegaly, no masses. EXTREMITIES: 2+ pulses, warm, well-perfused, no edema. NEUROLOGICAL: Cranial nerves II through XII grossly intact. Normal speech, gait not observed. PSYCH: Normal mood, normal affect. SKIN: Warm, dry, normal turgor, no rashes or lesions noted Laboratory Results - last 24 hr 08/22/19 21:35 Lyme Screen IgG & IgM <0.91 Active Medications Generic Name Dose Route Start Last Admin Trade Name Freq PRN Reason Stop Dose Admin Acetaminophen 650 mg 08/25/19 13:37 Tylenol - PO Q4H PRN MILD PAIN Chlorhexidine Gluconate 1 applic 08/25/19 22:00 Hibiclens For Decolonization - TP HS [facility] Diphenhydramine HCl 25 mg 08/25/19 13:37 Benadryl - PO Q6H PRN FOR ITCHING Immune Globulin 40 gm 08/25/19 18:00 Privigen 10% Vial IVPB 08/26/19 18:01 DAILY@1800 [facility] Mupirocin 1 applic 08/25/19 22:00 Bactroban Ointment (For Decolonization) - NS 08/28/19 09:59 BID [facility] ASSESSMENT/PLAN: ATTENDING PHYSICIAN STATEMENT I saw and evaluated the patient. I reviewed the resident's note and discussed the case with the resident. I agree with the resident's findings and plan as documented. SUBJECTIVE: OBJECTIVE: ASSESSMENT AND PLAN:
[2019-08-25] MEDS ORDERED: IMMUNE GLOBULIN (IgG) 20 GM VIAL (PRIVIGEN) IVPB SCH (18:00)
--- NOTE | 2019-08-25 18:23 | PN ---
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 with acute Guillain- [place] syndrome/AIDP. with katerine Herman diarhea, the developed numbness of her hands comning week;progressed to numbness of her feet of recent ; loss of dexterity in the last 72 hours. noted to have reduced reflexes over last week. LP done at [facility] one week ago CSF protein WNL. Also complains of dizziness/imbalance /SOB with exertion. Labs 08/08/19 positive for Campylobacter, crp 22, platelets 75k, sed rate 33. vit d 50, platelets 145k, HbA1c 8, sed rate 9 07/31/19 acute abdominal pain, diarrhea, nausea and vomiting lasting one week. 08/06/19 paresthesias of tips of all fingers without motor or sensory drift. right arm sensory drift, negative right Achilles, 2+ Achilles on left. 08/12/19 LP at [facility] with protein 29. Admitted for suspicion of AIDP/IVIG. 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.) Cardio/Vascular: No: AFIB, Aneurysm, Aortic Insufficiency, Aortic Stenosis, CAD , CHF, Deep Vein Thrombosis, HTN, Hyperlipdemia, [place], Mitral Insufficiency, Mitral Stenosis, Murmur, Pulmonary Hypertension, Other Pulmonary: No: Asthma, Bronchitis, Cancer, COPD, O2 Dependent, Pneumonia, Previously Intubated, Pulmonary Embolus, Pulmonary Fibrosis, Sleep Apnea, Other Gastrointestinal: Yes: Other (Lap band) Hepatobiliary: No: Cirrhosis, Cholelithiasis, Cholecystitis, Choledocholithiasis , Hepatitis A, Hepatitis B, Hepatitis C, Other Renal/: No: Renal Failure, Renal Inusuff, BPH, Cancer, Hematuria, Hemodialysis , Neurogenic Bladder, Renal Calculi, UTI, Other ...LMP Comment: 2011 ...: No Infectious Disease: Yes: Other (Campylobacter) Psych: No: Addictions, Anxiety, Bipolar, Depression, Panic, Psychosis, Schizophrenia, Other Musculoskeletal: Yes: Other (generalized muscle weakness) Rheumatology: No: Fibromyalgia, Gout, Lupus, Rheumatoid Arthritis, Sarcoidosis, Vasculitis, Other ENT: No: Allergic Rhinitis, Sinusitis, Other Endocrine: Yes: Diabetes Mellitus Dermatology: No: Basal Cell, Cellulitis, Eczema, Melanoma, Psoriasis, Squamous Cell, Other - Past Surgical History Past Surgical History: Yes: Hysterectomy, Laminectomy, Oopherectomy - Alcohol/Substance Use Hx Alcohol Use: Yes (occasional) History of Substance Use: reports: None - Smoking History Smoking history: Never smoked - Social History History of Recent Travel: No Physical Exam-Neuro Vital Signs: Vital Signs Temperature 97.6 F 08/24/19 21:00 Pulse Rate 76 08/25/19 12:42 Respiratory Rate 08/25/19 12:42 Blood Pressure 110/88 08/25/19 12:42 O2 Sat by Pulse Oximetry (%) 99 08/25/19 10:00 Labs: CBCD WBC 4.1 K/mm3 (4.0-10.0) 08/23/19 07:37 RBC 4.66 M/mm3 (3.60-5.2) 08/23/19 07:37 Hgb 12.9 GM/dL (10.7-15.3) 08/23/19 07:37 Hct 39.1 % (32.4-45.2) 08/23/19 07:37 MCV 83.8 fl (80-96) 08/23/19 07:37 MCHC 33.0 g/dl (32.0-36.0) 08/23/19 07:37 RDW 14.4 % (11.6-15.6) 08/23/19 07:37 Plt Count 140 K/MM3 (134-434) 08/23/19 07:37 MPV 7.6 fl (7.5-11.1) 08/23/19 07:37 CMP Sodium 138 mmol/L (136-145) 08/23/19 07:37 Potassium 4.0 mmol/L (3.5-5.1) 08/23/19 07:37 Chloride 106 mmol/L (98-107) 08/23/19 07:37 Carbon Dioxide 25 mmol/L (21-32) 08/23/19 07:37 Anion Gap 7 MMOL/L (8-16) L 08/23/19 07:37 BUN 17.5 mg/dL (7-18) 08/23/19 07:37 Creatinine 0.7 mg/dL (0.55-1.3) 08/23/19 07:37 Calcium 9.2 mg/dL (8.5-10.1) 08/23/19 07:37 Total Bilirubin 0.5 mg/dL (0.2-1) 08/23/19 07:37 AST 19 U/L (15-37) 08/23/19 07:37 ALT 38 U/L (13-61) 08/23/19 07:37 Alkaline Phosphatase 53 U/L (45-117) 08/23/19 07:37 Total Protein 7.1 g/dl (6.4-8.2) 08/23/19 07:37 Albumin 3.3 g/dl (3.4-5.0) L 08/23/19 07:37 Assessment/Plan 59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 with acute Guillain-Dinosaur syndrome/AIDP. day with katerine Herman diarhea, the developed numbness of her hands comning week;progressed to numbness of her feet of recent; loss of dexterity in the last 72 hours. noted to have reduced reflexes over last week. LP done at [facility] one week ago CSF protein WNL. Also complains of dizziness/imbalance /SOB with exertion. Labs 08/08/19 positive for Campylobacter, crp 22, platelets 75k, sed rate 33. 1 /04/01 vit d 50, platelets 145k, HbA1c 8, sed rate 9 07/31/19 acute abdominal pain, diarrhea, nausea and vomiting lasting one week. 08/06/19 paresthesias of tips of all fingers without motor or sensory drift. right arm sensory drift, negative right Achilles, 2+ Achilles on left. 08/12/19 LP at [facility] with protein 29. AP : Suspicion for AIDP clinically/ acute progressive sensorimotor neuropathy stable and improving IVIG day 4/5 and can go home after tomorrow dose DR LOWE
[2019-08-25] MEDS ORDERED: CHLORHEXIDINE GLUCONATE 4% CLEANSER FOR DECOLONIZATION TP SCH (22:00)
[2019-08-26] MEDS: ACETAMINOPHEN 325 MG TABLET (FP) PO PRN ×2 (06:27→11:43)
--- NOTE | 2019-08-26 10:55 | PN ---
Teaching Attending Note Name of Resident: Sharon Real ATTENDING PHYSICIAN STATEMENT I saw and evaluated the patient. I reviewed the resident's note and discussed the case with the resident. I agree with the resident's findings and plan as documented. SUBJECTIVE: Patient seen and examined in the ICU. No acute events overnight. No CP or SOB. Intake & Output 08/23/19 08/24/19 08/25/19 08/26/19 23:59 23:59 23:59 23:59 Intake Total 800 800 Balance 800 800 Weight 235 lb 14.314 oz 235 lb Last Vital Signs Temp Pulse Resp BP Pulse Ox 98.0 F 71 19 141/87 99 08/26/19 10:00 08/26/19 10:00 08/26/19 10:00 08/26/19 10:00 08/26/19 08:56 Active Medications Acetaminophen (Tylenol -) 650 mg PO Q4H PRN PRN Reason: MILD PAIN Last Admin: 08/26/19 06:27 Dose: 650 mg Chlorhexidine Gluconate (Hibiclens For Decolonization -) 1 applic TP HS QUIRINO Last Admin: 08/25/19 21:43 Dose: Not Given Diphenhydramine HCl (Benadryl -) 25 mg PO Q6H PRN PRN Reason: FOR ITCHING Last Admin: 08/25/19 21:44 Dose: 25 mg Immune Globulin (Privigen 10% Vial) 40 gm IVPB ONCE@1200 ONE Stop: 08/26/19 12:01 Mupirocin (Bactroban Ointment (For Decolonization) -) 1 applic NS BID QUIRINO Stop: 08/28/19 09:59 Last Admin: 08/25/19 21:43 Dose: Not Given Neuro: A+O x3, MEAD, neck supple HEENT: PERRL; MMM Lungs: CTA CV: RRR Abd: Soft, ND, NT EXT: WWP Laboratory Results - last 24 hr 08/22/19 21:35 Lyme Screen IgG & IgM <0.91 ASSESSMENT/PLAN: GBS/ADIP IVIG Infusion day #5/5 O2 as needed OOB to chair VTE prophylaxis PO as tolerated Dr Oh
--- NOTE | 2019-08-26 11:24 | PN ---
Progress Note, Physician Chief Complaint: Patient seen and examined at the bedside in ICU, no shortness of breath, no paresthesias, acute generalized muscle weakness, unsteady gait much improved. 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 07/31/19 abdominal pain, diarrhea, nausea, and vomiting; 08/06/19 paresthesias of tips of all fingers with negative motor or sensory drift; 08/08/19 right arm sensory drift, absent right Achilles, left Achilles 2+; 08/14/19 lost both Achilles, proprioception, balance, and fatigue; 08/20/19 paresthesias of both feet; 08/22/09 fell. - Current Medication List Current Medications: Active Medications Acetaminophen (Tylenol -) 650 mg PO Q4H PRN PRN Reason: MILD PAIN Last Admin: 08/26/19 06:27 Dose: 650 mg Chlorhexidine Gluconate (Hibiclens For Decolonization -) 1 applic TP HS [facility] Last Admin: 08/25/19 21:43 Dose: Not Given Diphenhydramine HCl (Benadryl -) 25 mg PO Q6H PRN PRN Reason: FOR ITCHING Last Admin: 08/25/19 21:44 Dose: 25 mg Immune Globulin (Privigen 10% Vial) 40 gm IVPB ONCE@1200 ONE Stop: 08/26/19 12:01 Mupirocin (Bactroban Ointment (For Decolonization) -) 1 applic NS BID [facility] Stop: 08/28/19 09:59 Last Admin: 08/25/19 21:43 Dose: Not Given - Objective Vital Signs: Vital Signs Temperature 98.0 F 08/26/19 10:00 Pulse Rate 71 08/26/19 10:00 Respiratory Rate 19 08/26/19 10:00 Blood Pressure 141/87 08/26/19 10:00 O2 Sat by Pulse Oximetry (%) 99 08/26/19 08:56 Constitutional: Yes: Well Nourished, No Distress, Calm Eyes: Yes: Conjunctiva Clear, EOM Intact HENT: Yes: Atraumatic, Normocephalic Neck: Yes: Supple, Trachea Midline Cardiovascular: Yes: Regular Rate and Rhythm Respiratory: Yes: Regular, CTA Bilaterally Gastrointestinal: Yes: Normal Bowel Sounds, Soft ...Rectal Exam: Yes: Deferred Genitourinary: Yes: WNL Breast(s): Yes: WNL Musculoskeletal: Yes: WNL, Muscle Weakness Extremities: Yes: Other (generalized muscle weakness) Edema: No Peripheral Pulses WNL: Yes Peripheral Pulses: Left Radial: 2+, Right Radial: 2+, Left Doralis Pedis: 2+, Right Dorsalis Pedis: 2+, Left Femoral: 2+, Right Femoral: 2+ Integumentary: Yes: WNL Neurological: Yes: Unsteady Gait (much improved), Weakness ...Motor Strength: LUE (generalized muscle weakness) Psychiatric: Yes: WNL Labs: CBC, BMP 08/24/19 05:10 08/24/19 05:10 INR, PTT INR 0.94 (0.83-1.09) 08/22/19 21:35 - ....Imaging Other: Report Reviewed (Lab data reviewed) Problem List - Problems (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 - GUILLAIN-BARRE SYNDROME (2) Endometrial ca Code(s): C54.1 - MALIGNANT NEOPLASM OF ENDOMETRIUM (3) Post laminectomy syndrome Code(s): M96.1 - POSTLAMINECTOMY SYNDROME, NOT ELSEWHERE CLASSIFIED (4) Paresthesia Code(s): R20.2 - PARESTHESIA OF SKIN (5) Impaired proprioception Code(s): R29.818 - OTHER SYMPTOMS AND SIGNS INVOLVING THE NERVOUS SYSTEM (6) Impaired functional mobility, balance, gait, and endurance Code(s): Z74.09 - OTHER REDUCED MOBILITY (7) Fatigue Code(s): R53.83 - OTHER FATIGUE (8) Fall from one level to another Code(s): W17.89XA - OTHER FALL FROM ONE LEVEL TO ANOTHER, INITIAL ENCOUNTER (9) Physical deconditioning Code(s): R53.81 - OTHER MALAISE (10) Muscular deconditioning Code(s): R29.898 - OTH SYMPTOMS AND SIGNS INVOLVING THE MUSCULOSKELETAL SYSTEM (11) Type 2 diabetes mellitus Code(s): E11.9 - TYPE 2 DIABETES MELLITUS WITHOUT COMPLICATIONS (12) Headache Code(s): R51 - HEADACHE Assessment/Plan Assessment/plan: acute Guillain-Reno syndrome (AIDP), acute generalized muscle weakness, acute progressive sensorimotor polyneuropathy; IV immune globulin, physical therapy, discharge planning, child protective services social worker request.
[2019-08-26] MEDS ORDERED: PT OWN MED DRAWER 7, Y5N ONE (11:41)
[2019-08-26] MEDS: MUPIROCIN 2% TOPICAL OINTMENT FOR DECOLONIZATION NS SCH (11:43)
[2019-08-26] MEDS ORDERED: IMMUNE GLOBULIN (IgG) 20 GM VIAL (PRIVIGEN) IVPB ONE ×2 (12:00→16:00)
--- NOTE | 2019-08-26 12:22 | DS ---
Physical Examination Vital Signs: Vital Signs Temperature 98.0 F 08/26/19 10:00 Pulse Rate 71 08/26/19 10:00 Respiratory Rate 19 08/26/19 10:00 Blood Pressure 141/87 08/26/19 10:00 O2 Sat by Pulse Oximetry (%) 99 08/26/19 08:56 Constitutional: Yes: Well Nourished, No Distress, Calm Eyes: Yes: Conjunctiva Clear, EOM Intact HENT: Yes: Atraumatic, Normocephalic Neck: Yes: Supple, Trachea Midline Cardiovascular: Yes: Regular Rate and Rhythm Respiratory: Yes: Regular, CTA Bilaterally Gastrointestinal: Yes: Normal Bowel Sounds, Soft ...Rectal Exam: Yes: Deferred Renal/: Yes: WNL Breast(s): Yes: WNL Musculoskeletal: Yes: Muscle Weakness Extremities: Yes: Other (Physical deconditioning) Edema: No Peripheral Pulses WNL: Yes Peripheral Pulses: Left Radial: 2+, Right Radial: 2+, Left Doralis Pedis: 2+, Right Dorsalis Pedis: 2+, Left Femoral: 2+, Right Femoral: 2+ Integumentary: Yes: WNL Neurological: Yes: Alert, Unsteady Gait (much improved), Weakness ...Motor Strength: LUE (physical deconditioning) Psychiatric: Yes: WNL Labs: CBC, BMP 08/24/19 05:10 08/24/19 05:10 Discharge Summary Problems reviewed: Yes Reason For Visit: GBS Current Active Problems Fall from one level to another (Acute) Fatigue (Acute) Guillain Ochoa syndrome (Acute) Headache (Acute) Impaired functional mobility, balance, gait, and endurance (Acute) Impaired proprioception (Acute) Muscular deconditioning (Acute) Paresthesia (Acute) Physical deconditioning (Acute) Type 2 diabetes mellitus (Acute) Condition: Improved - Instructions Diet, Activity, Other Instructions: Prior to discharge administer last dose of IV immune globulin. Regular diet. Activity as tolerated. Physical therapy. Follow up with Preconstruction Manager for further eval and management. Follow up with Dr. Whitman. Total time spent over 30 minutes. Disposition: HOME - Home Medications Prescription Drug Monitoring Program (I-STOP) results: I-STOP reviewed and issues identified
--- NOTE | 2019-08-26 13:58 | PN ---
Physical Exam: SUBJECTIVE: Patient seen and examined. Pt seen by attending OBJECTIVE: Vital Signs Period Temp Pulse Resp BP Sys/Griffin Pulse Ox Last 24 Hr 98.0 F 60-94 13-20 119-145/80-88 99-99 pt refused PE by resident Active Medications Generic Name Dose Route Start Last Admin Trade Name Freq PRN Reason Stop Dose Admin Acetaminophen 650 mg 08/25/19 13:37 08/26/19 11:43 Tylenol - PO 650 mg Q4H PRN Administration MILD PAIN Chlorhexidine Gluconate 1 applic 08/25/19 22:00 08/25/19 21:43 Hibiclens For Decolonization - TP Not Given HS QUIRINO Diphenhydramine HCl 25 mg 08/25/19 13:37 08/25/19 21:44 Benadryl - PO 25 mg Q6H PRN Administration FOR ITCHING Mupirocin 1 applic 08/25/19 22:00 08/26/19 11:43 Bactroban Ointment (For Decolonization) - NS 08/28/19 09:59 Not Given BID [facility] ASSESSMENT/PLAN: 59F presents in the ED for complaints of lower extremity weakness and GI symptoms for 2 weeks 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 Neuro Acute Guillain-Rayle Syndrome -AAOx3, stable gait -OOB to chair -IVIG day 12/15; administered early this morning Cardiovascular -hemodynamically stable -cont ICU tele monitoring Pulm -No acute issues -Satting well on room air GI -Currently asymptomatic, tolerating PO -Regular diet ID -Completed 1 week of Ciprofloxacin as an outpatient Prophylaxis DVT: SCDs FEN -no IVf -Regular diet Dispo: Pt stable for discharge today Visit type - Emergency Visit Emergency Visit: Yes ED Registration Date: 08/22/19 Care time: The patient presented to the Emergency Department on the above date and was hospitalized for further evaluation of their emergent condition. - New Patient This patient is new to me today: No - Critical Care Critical Care patient: Yes Total Critical Care Time (in minutes): 35 Critical Care Statement: The care of this patient involved high complexity decision making to prevent further life threatening deterioration of the patient 's condition and/or to evaluate & treat vital organ system(s) failure or risk of failure. ATTENDING PHYSICIAN STATEMENT I saw and evaluated the patient. I reviewed the resident's note and discussed the case with the resident. I agree with the resident's findings and plan as documented. SUBJECTIVE: OBJECTIVE: ASSESSMENT AND PLAN:
[2019-08-26 15:37] VITALS: PULSE 76; TEMP 97.7
[2019-08-26 15:40] VITALS: BP 120/90
== END 2019-08-26 17:46 | disposition home or self-care (01) | DRG 96 ==
LOC: J4S 20:29 → JICU 08-23 00:14
PROVIDERS: ADMIT Internal Medicine; ATTEND Internal Medicine
DX: G61.0 Guillain-Barre syndrome (principal); M96.1 Postlaminectomy syndrome, not elsewhere classified; R20.2 Paresthesia of skin; R29.818 Other symptoms and signs involving the nervous system; R53.81 Other malaise; R51 Headache; G60.3 Idiopathic progressive neuropathy; E11.9 Type 2 diabetes mellitus without complications; R53.83 Other fatigue; Z85.42 Personal history of malignant neoplasm of other parts of uterus; Z74.09 Other reduced mobility
CPT/HCPCS: 36415; 80048; 80053; 85025; 85027; 85610; 86618; 96365; 96366; 97116-GP; 97161-GP; J1459